=== PATIENT | female | born 1945 | race Caucasian/White ===

== ENCOUNTER 2019-11-08 09:56 | Outpatient (CLI) | payer MEDICARE, SELFPAY ==
[2019-11-08 11:01] LABS: Alanine Aminotransferase 16 U/L (4-35); Albumin Level 4.5 g/dL (3.5-5.1); Alkaline Phosphatase 98 U/L (38-126); Aspartate Amino Transferase 19 U/L (14-36); Bilirubin,Total 0.4 mg/dL (0.2-1.3); Blood Urea Nitrogen 10 mg/dL (7-17); Calcium 9.7 mg/dL (8.4-10.2); Carbon Dioxide 30 mmol/L (22-30); Chloride 99 mmol/L (98-107); Cholesterol 231 mg/dL (0-200); Estimated Glomerular Filt Rate > 60; Glucose 110 mg/dL (65-105); HDL Direct 54 mg/dL; Potassium 4.3 mmol/L (3.4-5.0); Sodium 137 mmol/L (137-145); Triglycerides 215 mg/dL (<150)
[2019-11-08 11:14] LABS: LDL Cholesterol Direct 129 mg/dL
[2019-11-08 11:37] LABS: Thyroid Stimulating Hormone Reflex 0.167 uIU/mL (0.465-4.68)
[2019-11-08 21:39] LABS: Free T4 Free Thyroxine Reflex 1.37 ng/dL (0.78-2.19)
[2019-11-08 22:19] LABS: Total Triiodothyronine (T3) 1.46 NG/ML (0.97-1.69)
== END 2019-11-08 09:57 | disposition home or self-care (01) ==
PROVIDERS: PCP Nurse Practitioner Family; Visit Provider Nurse Practitioner Family
DX: E03.9 Hypothyroidism, unspecified (principal); E78.2 Mixed hyperlipidemia; N39.0 Urinary tract infection, site not specified
CPT/HCPCS: 36415; 80048; 80061; 80076; 84439; 84443; 84480

== ENCOUNTER 2020-02-26 12:14 | Outpatient (CLI) | payer MEDICARE, SELFPAY ==
--- NOTE | ~2020-02-26 | MM_ITS ---
EXAMINATION: MM screening linda BI w yves HISTORY: Screening TECHNIQUE: Craniocaudal and mediolateral oblique 3-D tomosynthesis images were obtained and synthetic 2-D images were generated. CAD analysis was submitted and interpreted. COMPARISON: 02/05/2019, 09/13/2017 bilateral digital screening mammogram examinations. BREAST PARENCHYMAL COMPOSITION: There are scattered areas of fibroglandular density. FINDINGS: There is no evidence of suspicious mass, calcification, or architectural distortion to sugg est malignancy in either breast. There has been no suspicious interval change. IMPRESSION: 1. No mammographic evidence of malignancy. 2. Recommend routine screening mammography in one year. BI-RADS Category 1: Negative Reviewed, dictated and finalized at location A.
== END 2020-02-26 12:15 | disposition home or self-care (01) ==
PROVIDERS: PCP Nurse Practitioner Family; Visit Provider Nurse Practitioner Family
DX: Z12.31 Encounter for screening mammogram for malignant neoplasm of breast (principal)
CPT/HCPCS: 77063; 77067

== ENCOUNTER 2021-02-01 09:54 | Outpatient (CLI) | payer MEDICARE, SELFPAY ==
--- NOTE | ~2021-02-01 | DEXA_ITS ---
Bone Density Report Name: Shalonda Hawthorne Age: 75 Sex: Female Ethnicity: White Date of : 1945 Indication: postmenopausal; height loss; Referring Provider: Abad, Cassie Cintron Study: Bone densitometry was performed. Exam Date: February 01, 2021 Accession number: [id number] Bone Density: Region BMD T-score Z-score Classification AP Spine (L3, L4) 0.971 -1.2 1.3 Osteopenia Femoral Neck (Left) 0.716 -1.2 0.9 Osteopenia Total Hip (Left) 0.893 -0.4 1.4 Normal Total Hip Bilateral Avg 0.865 -0.6 1.1 Normal Femoral Neck (Right) 0.771 -0.7 1.4 Normal Total Hip (Right) 0.836 -0.9 0.9 Normal World Health Organization criteria for BMD impression classify patients as: Normal (T-score at or above -1.0), Osteopenia (T-score between -1.0 and -2.5), or Osteoporosis (T-score at or below -2.5). 10-year Fracture Risk(1): Major Osteoporotic Fracture 9.4% Hip Fracture 1.5% Reported Risk Factors: [place] (), Neck BMD=0.716, BMI=35.9 (1) FRAX(R) Version 3.08. Fracture probability calculated for an untreated patient. Fracture probability may be lower if the patient has received treatment. Previous Exams: Region Exam Age BMD T-score BMD Change BMD Change Date g/cm2 vs Baseline vs Previous AP Spine(L3, L4) 02/01/2021 75 0.971 -1.2 -0.065(-6.3%)# -0.043(-4.3%)* 07/08/2013 68 1.015 -0.8 -0.022(-2.1%)# -0.011(-1.0%)# 11/25/2009 64 1.026 -0.7 -0.011(-1.1%) 0.025(2.5%)* 02/02/2006 60 1.000 -0.9 -0.036(-3.5%)* -0.036(-3.5%)* 11/04/2002 57 1.036 -0.6 Total Hip(Left) 02/01/2021 75 0.893 -0.4 -0.061(-6.4%)# 0.062(7.5%)* 07/08/2013 68 0.831 -0.9 -0.123(-12.9%) -0.064(-7.1%)# 11/25/2009 64 0.895 -0.4 -0.059(-6.2%)* -0.069(-7.1%)* 02/02/2006 60 0.964 0.2 0.010(1.0%) 0.010(1.0%) 11/04/2002 57 0.954 0.1 Total Hip(Right) 02/01/2021 75 0.836 -0.9 -0.114(-12.0%) -0.033(-3.8%)* 07/08/2013 68 0.868 -0.6 -0.081(-8.5%)# -0.002(-0.2%)# 11/25/2009 64 0.870 -0.6 -0.079(-8.3%)* -0.056(-6.1%)* 02/02/2006 60 0.926 -0.1 -0.023(-2.4%) -0.023(-2.4%) 11/04/2002 57 0.949 0.1 *Denotes significance at 95% confidence level, LSC for AP Spine = 0.022 g/cm2, LSC for Total Hip = 0.027 g/cm2 Clinical Information Provided by Patient: Has used the following medications: Vitamin D, Calcium Patient maximum height was 63 No regular weight bearing exercise Drinks caffeinated beverages Onset of menses at age 13 Number of children 6 --------
== END 2021-02-01 09:55 | disposition home or self-care (01) ==
LOC: ANHIMG 09:56
PROVIDERS: PCP Nurse Practitioner Family; Visit Provider Nurse Practitioner Family
DX: Z78.0 Asymptomatic menopausal state (principal); M85.89 Other specified disorders of bone density and structure, multiple sites
CPT/HCPCS: 77080

== ENCOUNTER 2022-10-29 08:51 | Outpatient (CLI) | payer MEDICARE, SELFPAY ==
--- NOTE | ~2022-10-29 | MM_ITS ---
EXAMINATION: MM screening linda BI w yves HISTORY: Screening mammogram TECHNIQUE: Craniocaudal and mediolateral oblique 3-D tomosynthesis images were obtained and synthetic 2-D images were generated. CAD analysis was submitted and interpreted. COMPARISON: 02/26/2020, 02/05/2019, 09/13/2017 BREAST PARENCHYMAL COMPOSITION:There are scattered areas of fibroglandular density. FINDINGS: No suspicious mass, calcification, or architectural distortion are identified in either juan jose ast to suggest malignancy. There has been no suspicious interval change. IMPRESSION: No mammographic evidence of malignancy. Recommend routine screening mammography in one year. BI-RADS Category 1: Negative Reviewed, dictated and finalized at location .
== END 2022-10-29 08:52 | disposition home or self-care (01) ==
PROVIDERS: PCP Nurse Practitioner Family; Visit Provider Nurse Practitioner Family
DX: Z12.31 Encounter for screening mammogram for malignant neoplasm of breast (principal)
CPT/HCPCS: 77063; 77067

== ENCOUNTER 2023-10-02 15:00 | Outpatient (CLI) | payer MEDICARE, SELFPAY ==
--- NOTE | ~2023-10-02 | DEXA_ITS ---
Bone Density Report Name: CAMACHO ESCAMILLA Age: 78 Sex: Female Ethnicity: White Date of : 1945 Indication: osteopenia; height loss; postmenopausal Referring Provider: CANDACE BOONE Study: Bone densitometry was performed. Exam Date: October 02, 2023 Accession number: [id number] Bone Density: Region BMD T-score Z-score Classification AP Spine(L3, L4) 1.073 -0.3 2.4 Normal Femoral Neck (Left) 0.655 -1.7 0.4 Osteopenia Total Hip (Left) 0.847 -0.8 1.1 Normal Femoral Neck (Right) 0.643 -1.9 0.3 Osteopenia Total Hip (Right) 0.823 -1.0 0.9 Normal Total Hip Mean 0.835 -0.9 1.0 Normal World Health Organization criteria for BMD impression classify patients as: Normal (T-score at or above -1.0), Osteopenia (T-score between -1.0 and -2.5), or Osteoporosis (T-score at or below -2.5). 10-year Fracture Risk(1): Major Osteoporotic Fracture 12% Hip Fracture 2.8% Reported Risk Factors: [place] (), Neck BMD=0.643, BMI=40.1 (1) FRAX(R) Version 3.08. Fracture probability calculated for an untreated patient. Fracture probability may be lower if the patient has received treatment. Previous Exams: Region Exam Age BMD T-score BMD Change BMD Change Date g/cm2 vs Baseline vs Previous AP Spine (L3-L4) 10/02/2023 78 1.073 -0.3 0.101 (10.4%)# 0.101 (10.4%)# 02/01/2021 75 0.971 -1.2 Total Hip(Left) 10/02/2023 78 0.847 -0.8 -0.046 (-5.1%) -0.046 (-5.1%) 02/01/2021 75 0.893 -0.4 Total Hip(Right) 10/02/2023 78 0.823 -1.0 -0.013 (-1.5%) -0.013 (-1.5%) 02/01/2021 75 0.836 -0.9 *Denotes significance at 95% confidence level, LSC for AP Spine = 0.022 g/cm2, LSC for Total Hip = 0.027 g/cm2 # Denotes dissimilar scan types or analysis methods Clinical Information Provided by Patient: Has used the following medications: Vitamin D, Calcium, MULTI Patient maximum height was 64 No regular weight bearing exercise Drinks caffeinated beverages Onset of menses at age 13 Number of children 6 Impression: The patient has low bone mass, based on the Right Femoral Neck T-score. The patient has an estimated ten-year risk of hip fracture of 2.8% and an estimated ten-year risk of major fracture of 12%, based on the WHO FRAX algorithm. No significant bone loss was observed. Discussion: BONE DENSITY IS LOW AT ONE OR MORE SKELETAL SITES. This patient's lowest T-score is low at one or more skeletal sites. It meets the World Health Org
== END 2023-10-02 15:01 | disposition home or self-care (01) ==
PROVIDERS: PCP Nurse Practitioner Family; Visit Provider Nurse Practitioner Family
DX: M85.89 Other specified disorders of bone density and structure, multiple sites (principal); Z78.0 Asymptomatic menopausal state
CPT/HCPCS: 77080